=== PATIENT | female | born 1990 | race Two or more races ===

== ENCOUNTER 2018-08-12 14:54 | Emergency (ER) | payer MEDICAID, OTHER ==
[~2018-08-12] VITALS: Ht 162.6 cm; Wt 75.7 kg
[2018-08-12 17:06] VITALS: BP 165/63
[2018-08-12] MEDS ORDERED: LIDOCAINE W/ EPINEPHRINE 1 % INJ 30ML ONE (17:23)
[2018-08-12] MEDS ORDERED: BACITRACIN TOP OINT 1 UD PKG TOP ONE (18:45)
[2018-08-12] MEDS ORDERED: HYDROcodone-ACET 10/325MG TAB PO ONE (19:15)
[2018-08-12] MEDS ORDERED: TETANUS-DIPTH-ACEL PERTUSSIS 0.5ML SYRG IM ONE (19:15)
[2018-08-12] MEDS ORDERED: cefTRIAXone SOD 1,000 MG VL IM ONE (19:15)
[2018-08-12] MEDS ORDERED: LIDOCAINE 1% HCL (LOCAL ANESTH.) INJ 20ML MDV IJ ONE (19:15)
== END 2018-08-12 19:51 | disposition home or self-care (01) ==
LOC: ER 14:57
DX: S41.112A Laceration without foreign body of left upper arm, initial encounter (principal); S01.01XA Laceration without foreign body of scalp, initial encounter; S01.412A Laceration without foreign body of left cheek and temporomandibular area, initial encounter; M62.838 Other muscle spasm; M54.2 Cervicalgia; V86.55XA Driver of 3- or 4- wheeled all-terrain vehicle (ATV) injured in nontraffic accident, initial encounter; Y93.89 Activity, other specified; Y99.8 Other external cause status; Y92.89 Other specified places as the place of occurrence of the external cause
CPT/HCPCS: 12006; 12014; 36415; 70450; 70486; 72125; 84702; 90471; 90715; 96372; 99284; J0696; J2001